=== PATIENT | male | born 1960 | race Caucasian/White ===

== ENCOUNTER 2018-03-01 12:50 | Emergency (ER) | payer OTHER ==
[2018-03-01] MEDS ORDERED: CLINDAMYCIN 900MG/D5W 900 MG/50 ML BAG IV ONE (14:44)
[2018-03-01 15:16] LABS: Absolute Lymphocytes (CBC) 1.2 K/uL (0.7-4.9); Absolute Monocytes 0.7 K/uL (0.1-1.3); Basophils % 0.7 % (0-1.3); Eosinophils % 0.1 % (0-4.4); Hematocrit 44.4 % (39.6-49.0); Lymphocytes % 24.5 % (15.3-44.8); MCH 29.5 pg (27.0-35.0); MPV 8.2 fL (7.6-11.3); Monocytes % 13.6 % (3.3-12.3); RBC Red Blood Cell Count 5.29 M/uL (4.33-5.43)
[2018-03-01 15:21] LABS: Potassium 3.7 mmol/L (3.5-5.1)
--- NOTE | 2018-03-01 15:53 | EDPHYS ---
Physician Documentation [facility] Name: Sotero Fuentes Age: 57 yrs Sex: Male : 1960 Arrival Date: 03/01/2018 Time: 12:52 Bed 24 Private MD: ED Physician Srinivasan Camacho HPI: 03/01 13:10 This 57 yrs old Male presents to ER via Ambulatory with complaints of Skin jmm Problem. 13:10 the patient presents with a swollen area of the left leg. Onset: The symptoms/episode jmm began/occurred gradually, 5 day(s) ago. Possible cause(s): insect sting, spider bite. Associated signs and symptoms: Pertinent positives: erythema, swelling. This is a 57 year old male with no chronic medical conditions that presents to the ED with left thigh redness and swelling, Patient also complains of chills. . Historical: - Allergies: 13:00 No Known Allergies; aj1 - Home Meds: 13:00 None [Active]; aj1 - PMHx: 13:00 None; aj1 - PSHx: 13:00 None; aj1 - Immunization history:: Flu vaccine is not up to date. - Social history:: Smoking status: Patient/guardian denies using tobacco. - Ebola Screening: : Patient denies travel to an Ebola-affected area in the 21 days before illness onset. ROS: 13:10 Cardiovascular: Negative for chest pain, palpitations, and edema, Respiratory: Negative jmm for shortness of breath, cough, wheezing, and pleuritic chest pain, Abdomen/GI: Negative for abdominal pain, nausea, vomiting, diarrhea, and constipation. 13:10 Constitutional: Positive for body aches, chills. 13:10 Skin: Positive for erythema, swelling. 13:10 All other systems are negative. Exam: 13:10 Head/Face: atraumatic. Chest/axilla: Normal chest wall appearance and motion. jmm Cardiovascular: Regular rate and rhythm. No edema appreciated Respiratory: Normal respirations, no respiratory distress appreciated 13:10 Constitutional: The patient appears in no acute distress, alert, awake. 13:10 Skin: erythema noted to the left medial thigh, streaking noted, mildly tender to palpation, non circumferential . 13:10 Neuro: Orientation: is normal, Mentation: is normal, Memory: is normal. 13:10 Psych: Behavior/mood is pleasant, cooperative. Vital Signs: 13:00 BP 125 / 80; Pulse 95; Resp 18; Temp 98.2(TE); Pulse Ox 97% on R/A; Weight 81.65 kg aj1 (R); Height 5 ft. 6 in. (167.64 cm) (R); Pain 4/10; 14:50 BP 105 / 68 LA Sitting (auto/reg); Pulse 80; Resp 19 S; Pulse Ox 98% on R/A; Pain 3/10; jp3 15:40 BP 116 / 81 LA Sitting (auto/reg); Pulse 73; Resp 19; Pulse Ox 93% on R/A; Pain 3/10; jp3 13:00 Body Mass Index 29.05 (81.65 kg, 167.64 cm) aj1 MDM: 13:07 Patient medically screened. [facility] 15:52 Data reviewed: vital signs, nurses notes. Counseling: I had a detailed discussion with [facility] the patient and/or guardian regarding: the historical points, exam findings, and any diagnostic results supporting the discharge/admit diagnosis, lab results, the need for outpatient follow up, to return to the emergency department if symptoms worsen or persist or if there are any questions or concerns that arise at home. 15:52 ED course: Patient is alert and non toxic in appearance in the ED. CBC and sepsis [facility] markers unremarkable. Patient given IV abx in the ED with home oral abx prescription. Patient and family given strict return precautions. Understood and agree with the plan of care. . 03/01 13:08 Order name: CBC with Diff; Complete Time: 15:29 [facility] 03/01 13:08 Order name: BMP; Complete Time: 15:29 [facility] 03/01 13:08 Order name: Blood Culture Adult (2) [facility] 03/01 13:08 Order name: Procalcitonin; Complete Time: 15:51 [facility] 03/01 13:08 Order name: Lactate; Complete Time: 15:42 [facility] 03/01 13:08 Order name: Saline Lock; Complete Time: 14:42 [facility] Administered Medications: 14:58 Drug: Clindamycin 900 mg Route: IVPB; Infused Over: 30 mins; Site: right forearm; la1 16:04 Follow up: IV Status: Completed infusion la1 Disposition: 16:55 Co-signature as Attending Physician, Srinivasan Camacho MD. rn Disposition: 03/01/18 15:53 Discharged to Home. Impression: Cellulitis of left lower limb. - Condition is Stable. - Discharge Instructions: Cellulitis, Adult. - Prescriptions for Clindamycin HCl 300 mg Oral Capsule - take 1 capsule by ORAL route every 6 hours for 10 days; 40 capsule. - Medication Reconciliation Form, Thank You Letter, Antibiotic Education, Prescription Opioid Use form. - Follow up: Private Physician; When: 2 - 3 days; Reason: Recheck today's complaints, Continuance of care, Re-evaluation by your physician. Signatures: Dispatcher [employer] EDMS Dorys Palmer RN RN aj1 Zackary Khan PA PA jmm Nieto, Roman, MD MD rn Boaz Will RN RN la1 Corrections: (The following items were deleted from the chart) 16:04 15:53 03/01/2018 15:53 Discharged to Home. Impression: Cellulitis of left lower limb. la1 Condition is Stable. Forms are Medication Reconciliation Form, Thank You Letter, Antibiotic Education, Prescription Opioid Use. Follow up: Private Physician; When: 2 - 3 days; Reason: Recheck today's complaints, Continuance of care, Re-evaluation by your physician. ludy
--- NOTE | 2018-03-01 15:53 | ER ---
Nurse's Notes [facility] Name: Sotero Fuentes Age: 57 yrs Sex: Male : 1960 Arrival Date: 03/01/2018 Time: 12:52 Bed 24 Private MD: Diagnosis: Cellulitis of left lower limb Presentation: 03/01 12:57 Presenting complaint: Patient states: He has had redness and swelling to groin for the aj1 past 4 days. Reports yesterday he started having chills and bodyaches. Transition of care: patient was not received from another setting of care. Onset of symptoms was February 25, 2018. Risk Assessment: Do you want to hurt yourself or someone else? Patient reports no desire to harm self or others. Initial Sepsis Screen: Does the patient meet any 2 criteria? HR > 90 bpm. No. Patient's initial sepsis screen is negative. Does the patient have a suspected source of infection? Yes: Skin breakdown/wound. Care prior to arrival: None. 12:57 Method Of Arrival: Ambulatory aj1 12:57 Acuity: HORTENSIA 3 aj1 Triage Assessment: 13:00 General: Appears in no apparent distress. comfortable, Behavior is calm, cooperative, aj1 appropriate for age. Pain: Complains of pain in generalized body aches Pain currently is 4 out of 10 on a pain scale. Neuro: Level of Consciousness is awake, alert, obeys commands. Cardiovascular: Patient's skin is warm and dry. Respiratory: Airway is patent Respiratory effort is even, unlabored, Respiratory pattern is regular, symmetrical. Historical: - Allergies: 13:00 No Known Allergies; aj1 - Home Meds: 13:00 None [Active]; aj1 - PMHx: 13:00 None; aj1 - PSHx: 13:00 None; aj1 - Immunization history:: Flu vaccine is not up to date. - Social history:: Smoking status: Patient/guardian denies using tobacco. - Ebola Screening: : Patient denies travel to an Ebola-affected area in the 21 days before illness onset. Screenin:05 Abuse screen: Denies threats or abuse. Nutritional screening: No deficits noted. la1 Tuberculosis screening: No symptoms or risk factors identified. Fall Risk None identified. Assessment: 13:03 General: Appears in no apparent distress. Behavior is calm, cooperative. Pain: Denies la1 pain. Neuro: Level of Consciousness is awake, alert, obeys commands, Oriented to person, place, time, situation. Cardiovascular: Capillary refill < 3 seconds Patient's skin is warm and dry. Respiratory: Airway is patent Respiratory effort is even, unlabored, Respiratory pattern is regular, symmetrical. GI: No signs and/or symptoms were reported involving the gastrointestinal system. : No signs and/or symptoms were reported regarding the genitourinary system. Derm: Abscess located on medial aspect of left thigh is dime sized, has no drainage, is red. 14:27 Reassessment: Patient appears in no apparent distress at this time. No changes from la1 previously documented assessment. Patient and/or family updated on plan of care and expected duration. Pain level reassessed. Vital Signs: 13:00 BP 125 / 80; Pulse 95; Resp 18; Temp 98.2(TE); Pulse Ox 97% on R/A; Weight 81.65 kg aj1 (R); Height 5 ft. 6 in. (167.64 cm) (R); Pain 4/10; 14:50 BP 105 / 68 LA Sitting (auto/reg); Pulse 80; Resp 19 S; Pulse Ox 98% on R/A; Pain 3/10; jp3 15:40 BP 116 / 81 LA Sitting (auto/reg); Pulse 73; Resp 19; Pulse Ox 93% on R/A; Pain 3/10; jp3 13:00 Body Mass Index 29.05 (81.65 kg, 167.64 cm) aj1 ED Course: 12:52 Patient arrived in ED. as 13:00 Triage completed. aj1 13:00 Arm band placed on Patient placed in an exam room. aj1 13:01 Boaz Will, THEODORE is Primary Nurse. la1 13:02 Zackary Khan PA is PHCP. jm 13:02 Srinivasan Camacho MD is Attending Physician. [facility] 13:05 Bed in low position. Call light in reach. Side rails up X 1. la1 14:30 Initial lab(s) drawn, by me, sent to lab. First set of blood cultures drawn via jp3 20-gauge IV from Right Forearm. Inserted saline lock: 20 gauge in right forearm, using aseptic technique. Blood collected. 14:42 Lactate Sent. jp3 14:42 Procalcitonin Sent. jp3 14:42 BMP Sent. jp3 14:42 CBC with Diff Sent. jp3 14:50 Second set of blood cultures drawn via 21-gauge butterfly needle from Left A/C. jp3 14:58 Blood Culture Adult (2) Sent. jp3 16:04 No provider procedures requiring assistance completed. IV discontinued, intact, la1 bleeding controlled, No redness/swelling at site. Pressure dressing applied. Administered Medications: 14:58 Drug: Clindamycin 900 mg Route: IVPB; Infused Over: 30 mins; Site: right forearm; la1 16:04 Follow up: IV Status: Completed infusion la1 Outcome: 15:53 Discharge ordered by . ludy 16:04 Discharged to home ambulatory. la1 16:04 Condition: stable 16:04 Discharge instructions given to patient, Instructed on discharge instructions, follow up and referral plans. medication usage, Demonstrated understanding of instructions, follow-up care, medications, Prescriptions given X 2. 16:04 Patient left the ED. la1 Signatures: Dorys Palmer, RN RN aj1 Zackary Khan PA PA jmm Martinez, Amelia as Attema, Lee, RN RN la1 Frederic Stewart jp3
== END 2018-03-01 16:04 | disposition home or self-care (01) ==
LOC: ER 12:50
DX: L03.116 Cellulitis of left lower limb (principal)
CPT/HCPCS: 36415; 80048; 83605; 84145; 85025; 87040; 96365; 99284